=== PATIENT | male | born 1955 | race African-American/Black ===

== ENCOUNTER 2019-02-21 12:36 | Emergency (ER) | payer OTHER ==
[~2019-02-21] VITALS: Ht 177.8 cm; Wt 74.0 kg
[2019-02-21 14:21] VITALS: BP 209/110
== END 2019-02-21 14:29 | disposition home or self-care (01) ==
LOC: ER 12:37
DX: S13.4XXA Sprain of ligaments of cervical spine, initial encounter (principal); H53.8 Other visual disturbances; I10 Essential (primary) hypertension; Z88.0 Allergy status to penicillin; V49.49XA Driver injured in collision with other motor vehicles in traffic accident, initial encounter; Y93.89 Activity, other specified; Y92.89 Other specified places as the place of occurrence of the external cause; Y99.8 Other external cause status
CPT/HCPCS: 99281